=== PATIENT | female | born 1970 | race African-American/Black ===

== ENCOUNTER 2023-10-25 19:04 | Emergency (ER) | payer OTHER ==
[~2023-10-25] VITALS: Ht 170.2 cm; Wt 90.0 kg
[2023-10-25 19:10] VITALS: O2SAT 97
[2023-10-25] MEDS: METHOCARBAMOL 500MG TABLET PO ONE (19:54)
[2023-10-25] MEDS: KETOROLAC 30MG/ML VIAL IM ONE (20:02)
[2023-10-25] MEDS ORDERED: METH-653 MT (21:08)
[2023-10-25] MEDS ORDERED: IBUP-2029 MT (21:08)
[2023-10-25 21:15] VITALS: BP 145/91; PULSE 88; RESP 16; TEMP 98.1
== END 2023-10-25 21:15 | disposition home or self-care (01) ==
LOC: ER 19:04
DX: S13.4XXA Sprain of ligaments of cervical spine, initial encounter (principal); Z88.0 Allergy status to penicillin; V49.9XXA Car occupant (driver) (passenger) injured in unspecified traffic accident, initial encounter; Y93.89 Activity, other specified; Y92.89 Other specified places as the place of occurrence of the external cause; Y99.8 Other external cause status
CPT/HCPCS: 99283; 72040; 96372; J1885